=== PATIENT | female | born 1965 | race Caucasian/White ===

== ENCOUNTER 2018-02-11 16:32 | Emergency (ER) | payer MEDICAID ==
[~2018-02-11] VITALS: Ht 160 cm; Wt 51.3 kg
[2018-02-11 16:32] VITALS: BP_SYST 118
[~2018-02-11 16:32] MED LIST: CIPR-260 PO
[2018-02-11] MEDS ORDERED: NS 1000 ML BAG IV ONE (17:00)
[2018-02-11] MEDS ORDERED: INSULIN REGULAR, HUMAN 10 UNITS/0.1 ML INJ IVP ONE ×3 (17:00→20:15)
[2018-02-11 17:07] LABS: BILIRUBIN,URINE 1+ (NEGATIVE); CLARITY/URINE CLEAR (CLEAR); COLOR,URINE YELLOW (YELLOW); GLUCOSE,URINE 3+ (NEGATIVE); KETONES,URINE 1+ (NEGATIVE); LEUKOCYTE ESTERASE ,URINE NEGATIVE (NEGATIVE); NITRITE, URINE NEGATIVE (NEGATIVE); PH,URINE 5.5 (5.0-8.0); PROTEIN URINE 1+ (NEGATIVE); UROBILINOGEN,URINE 0.2 (0.2-1.0)
[2018-02-11 17:10] LABS: BLOOD, URINE TRACE (NEGATIVE)
[2018-02-11 17:22] LABS: BACTERIA,URINE FEW /HPF (None Seen); RBC,URINE 0-3 /HPF (0-3)
[2018-02-11 17:24] LABS: CALCIUM 9.2 mg/dL (8.4-11.0); CREATININE 1.33 mg/dL (0.55-1.30); POTASSIUM 3.2 mmol/L (3.5-5.1)
[2018-02-11 17:32] LABS: BASOPHILS % (AUTO) 0.6 % (0.0-2.0); EOSINOPHILS # (AUTO) 0.1 K/uL (0.0-0.4); EOSINOPHILS % (AUTO) 0.7 % (0.0-4.0); HEMATOCRIT 36.7 % (36-48); HEMOGLOBIN 12.5 g/dL (12.0-16.0); LYMPHOCYTES # (AUTO) 1.5 K/uL (1.0-5.5); LYMPHOCYTES % (AUTO) 18.9 % (20.5-51.5); MEAN CORPUSCULAR HEMOGLOBIN 29 pg (27-31); MEAN CORPUSCULAR HGB CONC 34 % (32-36); MEAN CORPUSCULAR VOLUME 84 fL (79.0-98.0); MONOCYTES # (AUTO) 0.5 K/uL (0.0-1.0); NEUTROPHILS # (AUTO) 5.9 K/uL (1.8-7.7); NEUTROPHILS % (AUTO) 73.8 % (40.0-70.0); PLATELET COUNT (AUTO) 276 K/uL (130-430); RED BLOOD CELL COUNT(AUTO) 4.39 MIL/uL (4.2-6.2); RED CELL DISTRIBUTION WIDTH 13.9 % (9.0-15.0)
[2018-02-11 17:35] LABS: ALBUMIN 3.2 g/dL (3.4-4.8); TOTAL BILIRUBIN 0.4 mg/dL (0.0-1.0)
[2018-02-11 18:03] LABS: INR 0.9 (0.8-1.2); PROTHROMBIN TIME 9.5 SECS (9.5-12.5)
[2018-02-11] MEDS ORDERED: INSU10VI5 (18:20)
[2018-02-11] MEDS ORDERED: CALC-226 PO (18:20)
[2018-02-11] MEDS ORDERED: HYDR12.55 PO (18:20)
[2018-02-11] MEDS ORDERED: MECL12.584 PO (18:20)
[2018-02-11] MEDS ORDERED: [UNRECOGNIZED DRUG - CODE] (18:20)
[2018-02-11] MEDS ORDERED: AMIT100T2 PO (18:20)
[2018-02-11] MEDS ORDERED: HYDR-1189 PO (18:20)
[2018-02-11] MEDS ORDERED: LOPE2CAP PO (18:20)
[2018-02-11] MEDS ORDERED: GABA-531 PO (18:20)
[2018-02-11] MEDS ORDERED: MONT10TA22 PO (18:20)
[2018-02-11] MEDS ORDERED: ASA81 PO (18:20)
[2018-02-11] MEDS ORDERED: VIS25 PO (18:20)
[2018-02-11] MEDS ORDERED: LIP20 PO (18:20)
[2018-02-11] MEDS ORDERED: FERR-57 PO (18:20)
[2018-02-11] MEDS ORDERED: SERT25TA PO (18:22)
[2018-02-11] MEDS ORDERED: NACL 0.9% 1,000 ML IV ONE (20:15)
[2018-02-11] MEDS ORDERED: POTASSIUM CHLORIDE 20 MEQ/PKT PACKET PO ONE (21:30)
[2018-02-11 21:44] VITALS: BP_SYST 105
[2018-02-11] MEDS ORDERED: ONDANSETRON HCL 4 MG/2 ML VIAL IVP PRN (22:00)
[2018-02-12] MEDS ORDERED: IPRATROPIUM/ALBUTEROL SULFATE 3 ML AMPUL.NEB INH SCH
[2018-02-12] MEDS ORDERED: PIPERACILLIN/TAZO 3.375 GM in NS 50 ML IV SCH (05:07)
[2018-02-12] MEDS ORDERED: AZITHROMYCIN 250 MG TABLET PO SCH (09:00)
== END 2018-02-11 21:44 | disposition home or self-care (01) ==
LOC: SED 16:32
DX: E11.65 Type 2 diabetes mellitus with hyperglycemia (principal); N17.9 Acute kidney failure, unspecified; E86.0 Dehydration; E87.6 Hypokalemia; E78.00 Pure hypercholesterolemia, unspecified; F17.200 Nicotine dependence, unspecified, uncomplicated; Z71.6 Tobacco abuse counseling; Z90.49 Acquired absence of other specified parts of digestive tract; Z79.899 Other long term (current) drug therapy; Z88.8 Allergy status to other drugs, medicaments and biological substances
CPT/HCPCS: 36415; 71045; 80053; 81000; 85025; 85610; 87040; 87086; 93005; 96361; 96374; 96376; 99285; J7030; J1815